=== PATIENT | female | born 1990 | race African-American/Black ===

== ENCOUNTER 2018-02-01 22:02 | Emergency (ER) | payer OTHER ==
[~2018-02-01] VITALS: Ht 160 cm; Wt 45.4 kg
[2018-02-01] MEDS ORDERED: DEXTROSE 5%/0.9% SOD CHL 1,000 ML IV ONE (22:45)
[2018-02-01] MEDS ORDERED: CEFTRIAXONE SOD 1 GM VIAL IV ONE (22:45)
[2018-02-01] MEDS: SODIUM CHLORIDE 0.9% 1000ML 1,000 ML IV SCH (23:11)
[2018-02-02 00:02] LABS: FREE THYROXINE INDEX 4.6981 (1.4-3.8); THYROID STIMULATING HORMONE 0.004 uIU/mL (0.350-4.940)
--- NOTE | 2018-02-02 00:37 | Diagnostic Imaging Report ---
Exam: Transabdominal first trimester ultrasound Indication: Vaginal bleeding for 12 hours in Comparison: None Findings: Grayscale and color Doppler images of the pelvis were obtained transabdominally. LMP December 01, 2017 A0 Gestational age by LMP 8 weeks and 6 days The uterus measures 10.9 x 7.6 x 9.9 cm. No uterine masses. The right ovary measures 4.6 x 1.9 x 2.2 cm and the left ovary measures 2.7 x 1.7 x 2.5 cm. No adnexal masses. There is a single intrauterine with gestational sac measuring 4.67 cm. Small subchorionic hematoma. The crown-rump length is 2.11 cm, which would correspond to an 8 week and 5 day gestation. The yolk sac was visualized. Heart rate 168 bpm. Impression: Single viable intrauterine corresponding to an 8 week and 5 day gestation. Small subchorionic hematoma. Signed by: Dr. Rebecca Black M.D. on 02/02/2018 12:34 AM
[2018-02-02 00:41] VITALS: BP 138/76
[2018-02-02] MEDS: SODIUM CHLORIDE 0.9% 1000ML 1,000 ML IV SCH (01:10)
== END 2018-02-02 01:00 | disposition home or self-care (01) ==
LOC: FSED 22:02
DX: O20.9 Hemorrhage in early pregnancy, unspecified (principal); O23.11 Infections of bladder in pregnancy, first trimester; N30.91 Cystitis, unspecified with hematuria; E05.00 Thyrotoxicosis with diffuse goiter without thyrotoxic crisis or storm
CPT/HCPCS: 36415; 76801; 80048; 81003; 81025; 84436; 84443; 84479; 84702; 85025; 86900; 99284; J7042